=== PATIENT | male | born 1955 | race Two or more races ===

== ENCOUNTER 2017-03-18 11:31 | Emergency (ER) | payer OTHER, MEDICAID ==
[~2017-03-18] VITALS: Ht 162.6 cm; Wt 111.1 kg
[~2017-03-18 11:31] MED LIST: ADVAIR 250-501 EACH INH; ALBUTEROL SULF8.5 GM INH; ALBUTEROL2.5 MG/3 M HHN; AUGMENTIN 500-1 EACH PO; AZITHROMYCIN250 MG ORAL; AZITHROMYCIN250 MG PO; CRESTOR10 M1 PO; CYCLOBENZAPRINE10 MG ORAL; IBUPROFEN600 MG PO; IBUPROFEN800 MG ORAL; MECLIZINE HCL25 MG PO; MEDROL DOSEPAK4 MG PO; NORCO 5-325 TA1 EACH ORAL; NORCO1 E1 ORAL; PHENERGAN/CODE120 ML PO; PREDNISONE20 MG ORAL; PREDNISONE50 MG ORAL; PREDNISONE50 MG PO; PROMETHAZINE-C118 M1 ORAL; ROBITUSSIN DM5 ML ORAL; SYMBICORT 16010.2 G1 IH; TAMIFLU75 MG PO; TESSALON PERLE100 M2 ORAL; TRAVATAN 0.0042.5 ML OP; TRUSOPT10 ML BOTH EYES; VICODIN 5-5001 EACH PO; VICODIN ES 7.51 EACH PO; ZANTAC150 MG PO; ZITHROMAX250 MG ORAL; ZOFRAN ODT4 MG ORAL; dorzolamide
[2017-03-18] MEDS ORDERED: Albuterol ud Inhalation ONE (11:53)
[2017-03-18] MEDS ORDERED: Ipratropium 0.02% Inh Soln 2.5ml UD ONE ×2 (11:53)
[2017-03-18] MEDS ORDERED: Albuterol ud Inhalation HHN ONE ×2 (12:00)
[2017-03-18] MEDS ORDERED: Solu-MEDROL 125mg Inj IM ONE (12:00)
[2017-03-18] MEDS ORDERED: Ipratropium 0.02% Inh Soln 2.5ml UD HHN ONE (12:00)
[2017-03-18] MEDS ORDERED: Acetaminophen 500mg (ES) tab ORAL ONE (12:15)
[2017-03-18 12:39] LABS: BASOPHILS % (AUTO) 1.7 % (0.0-2.0); EOSINOPHILS % (AUTO) 0.8 % (0.0-3.0); LYMPHOCYTES % (AUTO) 7.5 % (20.0-45.0); MEAN CORPUSCULAR HEMOGLOBIN 25.5 PG (27.0-31.0); MEAN CORPUSCULAR HGB CONC 32.6 G/DL (32.0-36.0); MEAN CORPUSCULAR VOLUME 78 FL (80-99); MEAN PLATELET VOLUME 6.3 FL (6.5-10.1); MONOCYTES % (AUTO) 10.9 % (1.0-10.0); NEUTROPHILS % (AUTO) 79.2 % (45.0-75.0); PLATELET COUNT 339 K/UL (150-450); RED BLOOD COUNT 5.43 M/UL (4.70-6.10); RED CELL DISTRIBUTION WIDTH 13.1 % (11.6-14.8); WHITE BLOOD COUNT 11.2 K/UL (4.8-10.8)
[2017-03-18 12:50] LABS: ALANINE AMINOTRANSFERASE 34 U/L (3-41); ALBUMIN/GLOBULIN RATIO 1.4 (1.0-2.7); ANION GAP 17 (5-15); ASPARTATE AMINO TRANSFERASE 35 U/L (5-40); CARBON DIOXIDE 28 mEQ/L (20-30); CHLORIDE 94 mEQ/L (98-107); CREATININE 1.1 mg/dL (0.7-1.2); GLOMERULAR FILTRATION RATE > 60 mL/min (>60); HEMOLYSIS 6; POTASSIUM 3.6 mEQ/L (3.4-4.9); SODIUM 139 mEQ/L (135-145); TOTAL PROTEIN 7.5 g/dL (6.6-8.7)
--- NOTE | 2017-03-18 12:50 | Diagnostic Imaging Report ---
Indication: SOB Technique: One view of the chest Comparison: none Findings: Inspiration is suboptimal. No acute infiltrates, effusions, or congestion. Tortuous calcified aorta. Normal heart size. Upper mediastinum unremarkable. No significant change Impression: No acute process.
[2017-03-18 13:16] VITALS: BP 135/75
[2017-03-18] MEDS ORDERED: LEVAQUIN750 MG ORAL (13:33)
[2017-03-18] MEDS ORDERED: PROMETH-CODEIN 65 ML PO (13:33)
[2017-03-18] MEDS ORDERED: PREDNISONE20 MG ORAL (13:33)
[2017-03-18 14:19] VITALS: BP 107/65
[2017-03-18 14:20] VITALS: BP 107/65
--- NOTE | 2017-03-22 15:09 | Emergency Room Report ---
History of Present Illness General Chief Complaint: Asthma Source: Patient, Medical Record Present Illness HPI Patient has with complaints of cough and congestion Increased worsening of his asthma Denies any headache denies any chest pain He does feel short of breath however Denies any back or flank pain He does have increased sputum production with the cough Denies any leg swelling denies any recent travel denies any pleurisy did not feel that his medications at home were helping and presents to the ER Allergies: Coded Allergies: No Known Allergies (Verified Allergy, Unknown, 06/01/07) Patient History Past Medical History: see triage record Pertinent Family History: none Reviewed Nursing Documentation: PMH: Agreed, PSxH: Agreed Nursing Documentation-PMH Past Medical History: No History, Except For Hx Hypertension: No Hx Pacemaker: No Hx Asthma: Yes Hx COPD: Yes Hx Diabetes: No Hx Cancer: No Hx Gastrointestinal Problems: Yes Hx Dialysis: No 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 Hx Seizures: No Hx Spinal Cord Injury: Yes - cervical Hx Dizziness: Yes Review of Systems All Other Systems: negative except mentioned in HPI Physical Exam Vital Signs Date Time Temp Pulse Resp B/P Pulse Ox O2 Delivery O2 Flow Rate FiO2 03/18/17 11:36 98.4 117 18 136/75 94 Room Air 03/18/17 11:43 2.0 03/18/17 12:00 28 Sp02 EP Interpretation: reviewed, normal General Appearance: mild distress - appear short of breath Head: normocephalic, atraumatic Eyes: bilateral eye EOMI, bilateral eye PERRL ENT: hearing grossly normal, normal pharynx, TMs + canals normal, uvula midline Neck: full range of motion, supple, no meningismus, no bony tend Respiratory: no respiratory distress, no retraction, no accessory muscle use, wheezing - Diffusely and mildly tachypneic Cardiovascular #1: normal peripheral pulses, regular rate, rhythm, no edema, no gallop, no JVD, no murmur Gastrointestinal: normal bowel sounds, non tender, soft, no mass, no organomegaly, non-distended, no guarding, no hernia, no pulsatile mass, no rebound Genitourinary: no CVA tenderness Musculoskeletal: normal inspection Neurologic: oriented x3, responsive, dry can tender III-XII nml as tested, motor strength/ tone normal, sensory intact Psychiatric: mood/affect normal Skin: normal color, no rash, warm/dry, palpation normal Lymphatic: normal inspection, no adenopathy Medical Decision Making Diagnostic Impression: Primary Impression: Atypical pneumonia ER Course Patient is a fairly complex patient with multiple differential to consideration including but not limited to cardiac cardiopulmonary and vascular emergencies Patient's x-ray and blood work are appropriate Patient has done significantly better I did want to observe the patient longer and possible repeat intervention however patient reports that he is to clam pick[place] mom at the airport and would like to leave at this time he feels significantly better And will continue with close outpatient followup given the risk factors and the findings patient appears to have findings in line with atypical pneumonia CBC normal Chemistry normal Rhythm Strip Diag. Results EP Interpretation: yes Rate: 90 Rhythm: NSR, no PVC's, no ectopy Chest X-Ray Diagnostic Results EP Interpretation: Yes Findings: no consolidation, no effusion, no pneumothorax Number of Views: 1 Last Vital Signs Date Time Temp Pulse Resp B/P Pulse Ox O2 Delivery O2 Flow Rate FiO2 03/18/17 14:20 99.4 106 18 107/65 95 Room Air 2.0 28 Status: improved Disposition: HOME, SELF-CARE Condition: Improved Scripts Prednisone* (PREDNISONE*) 20 Mg Tablet 20 MG ORAL BID, #8 TAB Prov: NADINE DIALLO D.O. 03/18/17 Promethazine HCl/Codeine (Prometh-Codein 6.25-10 mg/5 ml) 5 Ml Syrup 5 ML PO QHS for 7 Days, ML Prov: NADINE DIALLO D.O. 03/18/17 Levofloxacin* (LEVAQUIN*) 750 Mg Tablet 750 MG ORAL DAILY for 7 Days, TAB Prov: NADINE DIALLO D.O. 03/18/17 Referrals: [facility],REFERRING (PCP) Patient Instructions: Asthma, Adult, Community-Acquired Pneumonia, Adult Additional Instructions: Patient is provided with the discharge instructions notified to follow up with primary doctor in the next 2-3 days otherwise return to the er with any worsening symptoms. Please note that this report is being documented using Coll[employer] technology. This can lead to erroneous entry secondary to incorrect interpretation by the dictating instrument. NADINE DIALLO D.O. Mar 22, 2017 15:09
== END 2017-03-18 14:22 | disposition home or self-care (01) ==
LOC: EMR 11:47
DX: J18.9 Pneumonia, unspecified organism (principal); J44.9 Chronic obstructive pulmonary disease, unspecified; H40.9 Unspecified glaucoma
CPT/HCPCS: 36415; 71010; 80053; 85025; 87040; 94640; 94664; 99283; J2930

== ENCOUNTER 2017-05-19 16:07 | Emergency (ER) | payer OTHER, MEDICAID ==
[~2017-05-19] VITALS: Ht 162.6 cm; Wt 117.9 kg
[~2017-05-19 16:07] MED LIST changes: +LEVAQUIN750 MG ORAL; +PROMETH-CODEIN 65 ML PO
[2017-05-19] MEDS ORDERED: PENICILLIN V P500 MG PO (17:04)
[2017-05-19] MEDS ORDERED: TYLENOL EXTRA500 MG ORAL (17:04)
[2017-05-19 17:15] VITALS: BP 146/97
[2017-05-19 17:16] VITALS: BP 150/100
--- NOTE | 2017-05-19 22:38 | Emergency Room Report ---
History of Present Illness General Chief Complaint: General Complaint Source: Patient Present Illness HPI The patient is a 62-year-old male presenting for injury of the tongue. He states that he bit the tongue one hour prior to arrival. He has not been able to control the bleeding. He denies any pain at this time. He states that he takes one baby aspirin daily and denies taking any blood thinners. He denies any other symptoms Allergies: Coded Allergies: No Known Allergies (Verified Allergy, Unknown, 06/01/07) Patient History Past Medical History: see triage record Pertinent Family History: none Reviewed Nursing Documentation: PMH: Agreed, PSxH: Agreed Nursing Documentation-PMH Hx Hypertension: No Hx Pacemaker: No Hx Asthma: Yes Hx COPD: Yes Hx Diabetes: No Hx Cancer: No Hx Gastrointestinal Problems: Yes Hx Dialysis: No 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 Hx Seizures: No Hx Spinal Cord Injury: Yes - cervical Hx Dizziness: Yes Review of Systems All Other Systems: negative except mentioned in HPI Physical Exam Vital Signs Date Time Temp Pulse Resp B/P Pulse Ox O2 Delivery O2 Flow Rate FiO2 05/19/17 16:12 98.2 95 18 150/100 95 Room Air Sp02 EP Interpretation: reviewed, normal General Appearance: no apparent distress, alert, GCS 15, non-toxic Head: normocephalic, atraumatic Eyes: bilateral eye PERRL, bilateral eye normal inspection ENT: hearing grossly normal, normal pharynx, normal voice, uvula midline, other - There is a less than 1 cm puncture of the ventral surface of the anterior tongue. Minimal active bleeding Neck: full range of motion, supple/symm/no masses Neurologic: alert, oriented x3, responsive, motor strength/tone normal, sensory intact, speech normal Psychiatric: judgement/insight normal, memory normal, mood/affect normal, no suicidal/homicidal ideation Skin: normal color, no rash, warm/dry, well hydrated Lymphatic: no adenopathy Medical Decision Making PA Attestation Dr. Milton is my supervising physician. Patient management was discussed with my supervising physician Diagnostic Impression: Primary Impression: Tongue laceration Qualified Codes: S01.512A - Laceration without foreign body of oral cavity, initial encounter ER Course The patient is a 62-year-old male presenting after biting his tongue Differential diagnosis considered: Laceration, infection, uncontrollable bleeding, anemia, among others Physical exam: No apparent distress There is a small puncture to the ventral surface of the anterior tongue with minimal bleeding. Pressure dressing is applied and the bleeding has stopped within 5 minutes. The patient is discharged home and will be given a prescription for penicillin as prophylaxis. ER precautions are given Last Vital Signs Date Time Temp Pulse Resp B/P Pulse Ox O2 Delivery O2 Flow Rate FiO2 05/19/17 17:16 98.2 18 150/100 95 Room Air 05/19/17 17:15 91 Status: improved Disposition: HOME, SELF-CARE Condition: Improved Scripts Penicillin V Potassium* (PENVK*) 500 Mg Tablet 500 MG PO Q6H, #28 TAB 0 Refills Prov: SERINA MORLEY P.A. 05/19/17 Acetaminophen* (TYLENOL EXTRA STRENGTH*) 500 Mg Tablet 500 MG ORAL Q8H Y for Prn Headache/Temp > 101, #30 TAB 0 Refills Prov: SERINA MORLEY P.A. 05/19/17 Patient Instructions: Tongue Laceration Additional Instructions: I discussed my findings with the patient. All questions and concerns have been answered. Treatment and medication compliance have been addressed. I advised the patient that they need to follow up with PMD in 3-5 days. Return to ED if symptoms worsen, new symptoms arise, or if needed for any reason. Patient verbalized understanding of discharge instructions. Please return to emergency Department if bleeding continues SERINA MORLEY May 19, 2017 22:38
== END 2017-05-19 17:17 | disposition home or self-care (01) ==
LOC: EMR 16:35
DX: S01.532A Puncture wound without foreign body of oral cavity, initial encounter (principal); X58.XXXA Exposure to other specified factors, initial encounter; Y92.89 Other specified places as the place of occurrence of the external cause; J44.9 Chronic obstructive pulmonary disease, unspecified
CPT/HCPCS: 99284

== ENCOUNTER 2017-09-25 15:10 | Emergency (ER) | payer OTHER, MEDICAID ==
[~2017-09-25] VITALS: Ht 162.6 cm; Wt 112.5 kg
[~2017-09-25 15:10] MED LIST changes: +PENICILLIN V P500 MG PO; +TYLENOL EXTRA500 MG ORAL
[2017-09-25] MEDS ORDERED: ZANTAC150 MG ORAL (15:22)
[2017-09-25] MEDS ORDERED: Albuterol ud Inhalation HHN ONE ×2 (15:30→16:30)
[2017-09-25] MEDS ORDERED: Ipratropium 0.02% Inh Soln 2.5ml UD HHN ONE ×2 (15:30→16:30)
[2017-09-25 15:48] VITALS: BP 144/128
[2017-09-25] MEDS ORDERED: PREDNISONE20 MG ORAL (17:27)
[2017-09-25] MEDS ORDERED: PROAIR HFA8.5 GM INH (17:27)
[2017-09-25] MEDS ORDERED: PROMETHAZINE-C118 M1 ORAL (17:27)
[2017-09-25 17:45] VITALS: BP 141/87
--- NOTE | 2017-09-25 20:17 | Emergency Room Report ---
History of Present Illness General Chief Complaint: Upper Respiratory Illness Source: Patient Present Illness [facility] The patient is a 62-year-old male with a stated history of asthma presenting for shortness of breath and cough for the past 4 days. He has tried albuterol at home which has not been helping. Pain is a 5/10 dull ache in the chest worse with cough. He denies any known sick contacts or recent travel. He denies fever or chills. He denies any other symptoms Allergies: Coded Allergies: No Known Allergies (Verified Allergy, Unknown, 06/01/07) Patient History Past Medical History: see triage record Pertinent Family History: none Reviewed Nursing Documentation: PMH: Agreed, PSxH: Agreed Nursing Documentation-PMH Hx Hypertension: No Hx Pacemaker: No Hx Asthma: Yes Hx COPD: Yes Hx Diabetes: No Hx Cancer: No Hx Gastrointestinal Problems: Yes Hx Dialysis: No 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 Hx Seizures: No Hx Spinal Cord Injury: Yes - cervical Hx Dizziness: Yes Review of Systems All Other Systems: negative except mentioned in HPI Physical Exam Vital Signs Date Time Temp Pulse Resp B/P (MAP) Pulse Ox O2 Delivery O2 Flow Rate FiO2 09/25/17 15:17 89 17 Room Air 09/25/17 15:17 97.7 144/128 94 Sp02 EP Interpretation: reviewed, normal General Appearance: no apparent distress, alert, GCS 15, non-toxic Head: normocephalic, atraumatic Eyes: bilateral eye normal inspection, bilateral eye PERRL ENT: hearing grossly normal, normal pharynx, no angioedema, normal voice Neck: full range of motion, supple/symm/no masses Respiratory: no rhonchi, no respiratory distress, no accessory muscle use, wheezing - bilat Cardiovascular #1: regular rate, rhythm, no edema Musculoskeletal: back normal, gait/station normal, normal range of motion, non- tender Neurologic: alert, oriented x3, responsive, motor strength/tone normal, sensory intact, speech normal Psychiatric: judgement/insight normal, memory normal, mood/affect normal, no suicidal/homicidal ideation Skin: normal color, no rash, warm/dry, well hydrated Medical Decision Making PA Attestation Dr. Morris is my supervising physician. Patient management was discussed with my supervising physician Diagnostic Impression: Primary Impression: Asthma exacerbation Qualified Codes: J45.21 - Mild intermittent asthma with (acute) exacerbation ER Course The patient is a 62-year-old male with a stated history of asthma presenting for shortness of breath and cough for the past 4 days Differential diagnoses considered but not limited to: Asthma exacerbation, bronchitis, pneumonia, anxiety Physical exam: Vitals within normal limits. No apparent distress HEENT exam is unremarkable Lungs: Decreased breath sounds bilaterally with wheezing. Chest is nontender. No respiratory distress. No accessory muscle use. The patient was given a breathing treatment and is feeling much better. Lungs sounds have improved Patient is discharged home with a prescription for albuterol, prednisone, and cough syrup and will followup with PMD. ER precautions are given Chest X-Ray Diagnostic Results Chest X-Ray Diagnostic Results : Chest X-Ray Ordered: Yes # of Views/Limited/Complete: 1 View Indication: Other - cough EP Interpretation: Yes CASSANDRA Xray: Interpretation reviewed, by supervising MD, and agrees with findings. Interpretation: no consolidation, no effusion, no pneumothorax Impression: No acute disease Electronically Signed by: Logan Godoy PA-C Last Vital Signs Date Time Temp Pulse Resp B/P (MAP) Pulse Ox O2 Delivery O2 Flow Rate FiO2 09/25/17 17:45 98 22 141/87 96 Room Air 09/25/17 15:48 97.7 Status: improved Disposition: HOME, SELF-CARE Condition: Improved Scripts Albuterol Sulfate* (PROAIR HFA*) 8.5 Gm Hfa.aer.ad 2 PUFFS INH Q6H, #8.5 GM 0 Refills Prov: TERZIANLOGAN P.A. 09/25/17 Prednisone* (PREDNISONE*) 20 Mg Tablet 40 MG ORAL DAILY, #10 TAB Prov: TERZIAN,LOGAN P.A. 09/25/17 Codeine/Promethazine Hcl* (PROMETHAZINE-CODEINE SYRUP*) 118 Ml Syrup 5 ML ORAL Q6H Y for For Cough, #118 ML 0 Refills Prov: TERZIANLOGAN P.A. 09/25/17 Referrals: NON PHYSICIAN (PCP) Patient Instructions: Asthma, Adult Additional Instructions: I discussed my findings with the patient. All questions and concerns have been answered. Treatment and medication compliance have been addressed. I advised the patient that they need to follow up with PMD in 3-5 days. Return to ED if pain remains or worsens, cough worsens or remains, you notice blood in your sputum, you notice wheezing, you experience a fever, or if needed for any reason. Patient verbalized understanding of discharge instructions. LOGAN GODOY Sep 25, 2017 20:17
--- NOTE | 2017-09-26 09:54 | Diagnostic Imaging Report ---
Indication: COUGH. Technique: XRAY CHEST 1 V. Comparison: 03/18/17 Findings: The heart is normal in size. The lungs are clear. No pleural fluid. There is atherosclerotic change of the aorta. The bones are unremarkable. Impression: Atherosclerotic change. Otherwise negative chest.
== END 2017-09-25 18:46 | disposition home or self-care (01) ==
LOC: EMR 15:54
DX: J45.901 Unspecified asthma with (acute) exacerbation (principal)
CPT/HCPCS: 71010; 94640; 94664; 99284

== ENCOUNTER 2017-10-23 15:25 | Emergency (ER) | payer OTHER, MEDICAID ==
[~2017-10-23] VITALS: Ht 162.6 cm; Wt 113.4 kg
[~2017-10-23 15:25] MED LIST changes: +PROAIR HFA8.5 GM INH; +ZANTAC150 MG ORAL
[2017-10-23] MEDS: Ipratropium 0.02% Inh Soln 2.5ml UD HHN SCH ×3 (16:53→17:16)
[2017-10-23] MEDS: Albuterol ud Inhalation HHN SCH ×3 (16:53→17:16)
[2017-10-23] MEDS ORDERED: ADVAIR 250-501 EACH INH (17:53)
[2017-10-23] MEDS ORDERED: PREDNISONE20 MG ORAL (17:53)
[2017-10-23] MEDS ORDERED: PROMETHAZINE-C118 M1 ORAL (17:53)
[2017-10-23 18:10] VITALS: BP 131/85
--- NOTE | 2017-10-24 13:02 | Emergency Room Report ---
History of Present Illness General Chief Complaint: Upper Respiratory Illness Source: Patient Present Illness [facility] The patient is a 62-year-old male with a stated history of asthma presenting for 5 days of productive cough and wheezing. He states that he frequently gets asthma exacerbations. He has albuterol at home which has not been helping. he denies any recent travel or known sick contacts. He denies any fever or chills. He denies any other symptoms including hemoptysis, shortness of breath , chest pain, myalgia Allergies: Coded Allergies: No Known Allergies (Verified Allergy, Unknown, 06/01/07) Patient History Past Medical History: see triage record Pertinent Family History: none Reviewed Nursing Documentation: PMH: Agreed, PSxH: Agreed Nursing Documentation-PMH Hx Hypertension: No Hx Pacemaker: No Hx Asthma: Yes Hx COPD: Yes Hx Diabetes: No Hx Cancer: No Hx Gastrointestinal Problems: Yes Hx Dialysis: No 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 Hx Seizures: No Hx Spinal Cord Injury: Yes - cervical Hx Dizziness: Yes Review of Systems All Other Systems: negative except mentioned in HPI Physical Exam Vital Signs Date Time Temp Pulse Resp B/P (MAP) Pulse Ox O2 Delivery O2 Flow Rate FiO2 10/23/17 15:34 88 21 Room Air 10/23/17 15:34 98.1 131/85 96 Sp02 EP Interpretation: reviewed, normal General Appearance: no apparent distress, alert, GCS 15, non-toxic Head: normocephalic, atraumatic Eyes: bilateral eye normal inspection, bilateral eye PERRL ENT: hearing grossly normal, normal pharynx, no angioedema, normal voice, uvula midline Neck: full range of motion, supple/symm/no masses Respiratory: chest non-tender, lungs clear, normal breath sounds, speaking full sentences, wheezing - bilat diffuse Cardiovascular #1: regular rate, rhythm, no edema Musculoskeletal: back normal, gait/station normal, normal range of motion, non- tender Neurologic: alert, oriented x3, responsive, motor strength/tone normal, sensory intact, speech normal Psychiatric: judgement/insight normal, memory normal, mood/affect normal, no suicidal/homicidal ideation Skin: normal color, no rash, warm/dry, well hydrated Lymphatic: no adenopathy Medical Decision Making PA Attestation Dr. Donnelly is my supervising physician. Patient management was discussed with my supervising physician Diagnostic Impression: Primary Impression: Asthma exacerbation Qualified Codes: J45.21 - Mild intermittent asthma with (acute) exacerbation ER Course The patient is a 62-year-old male with a stated history of asthma presenting for 5 days of productive cough and wheezing Differential diagnoses considered but not limited to: Asthma exacerbation, bronchitis, pneumonia, influenza, among others PE: Afebrile. NAD HEENT exam unremarkable. No tonsillar edema or exudate No cervical lymphadenopathy RRR Lungs have diffuse bilateral wheezing The patient is given a breathing treatment and feels better. Lung sounds have improved He'll be discharged home with prescription for cough medication, prednisone, and Advair. ER precautions are given Last Vital Signs Date Time Temp Pulse Resp B/P (MAP) Pulse Ox O2 Delivery O2 Flow Rate FiO2 10/23/17 18:10 98.3 100 19 131/85 96 Room Air Status: improved Disposition: HOME, SELF-CARE Condition: Improved Scripts Fluticasone/Salmeterol (Advair 250-50 Diskus) 1 Each Blst.w.dev 1 PUFF INH EVERY 12 HOURS, #1 EA Prov: SERINA MORLEY P.A. 10/23/17 Prednisone* (PREDNISONE*) 20 Mg Tablet 40 MG ORAL DAILY, #10 TAB Prov: SERINA MORLEY P.A. 10/23/17 Codeine/Promethazine Hcl* (PROMETHAZINE-CODEINE SYRUP*) 118 Ml Syrup 5 ML ORAL Q6H Y for For Cough, #118 ML 0 Refills Prov: SERINA MORLEY P.A. 10/23/17 Referrals: NON PHYSICIAN (PCP) Patient Instructions: Cough, Adult Additional Instructions: I discussed my findings with the patient. All questions and concerns have been answered. Treatment and medication compliance have been addressed. I advised the patient that they need to follow up with PMD in 3-5 days. Return to ED if pain remains or worsens, cough worsens or remains, you notice blood in your sputum, you notice wheezing, you experience a fever, or if needed for any reason. Patient verbalized understanding of discharge instructions. SERINA MORLEY Oct 24, 2017 13:01
== END 2017-10-23 18:10 | disposition home or self-care (01) ==
LOC: EMR 16:00
DX: J45.901 Unspecified asthma with (acute) exacerbation (principal); J44.9 Chronic obstructive pulmonary disease, unspecified
CPT/HCPCS: 94640; 94664; 99282

== ENCOUNTER 2017-11-15 10:48 | Emergency (ER) | payer OTHER, MEDICAID ==
[~2017-11-15] VITALS: Ht 162.6 cm; Wt 113.4 kg
[2017-11-15 11:05] VITALS: BP 160/78
[2017-11-15] MEDS ORDERED: IBUPROFEN600 MG ORAL (12:17)
[2017-11-15] MEDS ORDERED: ROBAXIN-750750 MG PO (12:17)
[2017-11-15 12:37] VITALS: BP 155/75
--- NOTE | 2017-11-15 13:42 | Emergency Room Report ---
History of Present Illness General Chief Complaint: Pain Source: Patient, Medical Record Present Illness HPI 62-year-old male, presenting with bilateral shoulder pain after fall yesterday. States that he slipped onto his left side. Since then complaining of bilateral shoulder pain. However has still been able to move it. Did not hit his head. No LOC. Patient able to get up on his own. No other complaints Allergies: Coded Allergies: No Known Allergies (Verified Allergy, Unknown, 06/01/07) Patient History Past Medical History: see triage record Past Surgical History: none Pertinent Family History: none Reviewed Nursing Documentation: PMH: Agreed, PSxH: Agreed Nursing Documentation-PMH Past Medical History: No History, Except For Hx Hypertension: No Hx Pacemaker: No Hx Asthma: Yes Hx COPD: Yes Hx Diabetes: No Hx Cancer: No Hx Gastrointestinal Problems: Yes Hx Dialysis: No 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 Hx Seizures: No Hx Spinal Cord Injury: Yes - cervical Hx Dizziness: Yes Review of Systems All Other Systems: negative except mentioned in HPI Physical Exam Vital Signs Date Time Temp Pulse Resp B/P (MAP) Pulse Ox O2 Delivery O2 Flow Rate FiO2 11/15/17 10:50 97.9 83 18 160/78 95 Room Air Sp02 EP Interpretation: reviewed, normal General Appearance: alert, GCS 15, non-toxic, mild distress Head: normocephalic, atraumatic Eyes: bilateral eye normal inspection, bilateral eye PERRL, bilateral eye EOMI ENT: normal ENT inspection, normal pharynx, normal voice, moist mucus membranes Neck: normal inspection, full range of motion, supple, no meningismus, no bony tend Respiratory: normal inspection, lungs clear, normal breath sounds, no respiratory distress, no retraction, no wheezing, speaking full sentences, chest symmetrical Cardiovascular #1: normal inspection, regular rate, rhythm, no edema, normal capillary refill Cardiovascular #2: 2+ radial (R), 2+ radial (L) Gastrointestinal: normal inspection, non tender, soft, non-distended, no guarding Genitourinary: no CVA tenderness Musculoskeletal: back normal, other - Bilateral muscular tenderness along the deltoid muscle bilaterally, full range of motion all extremities, no gross bony deformities Neurologic: normal inspection, alert, oriented x3, responsive, motor strength/ tone normal, sensory intact, normal gait, speech normal Psychiatric: normal inspection, judgement/insight normal, memory normal Skin: normal inspection, normal color, no rash, warm/dry, well hydrated, normal turgor Medical Decision Making Diagnostic Impression: Primary Impression: Musculoskeletal pain ER Course 62-year-old male with bilateral shoulder pain after fall DDX: Likely musculoskeletal pain vs. muscular strain Plan: Motrin ER course: Patient has remained nontoxic appearing and ambulatory in the ED. Pain improved w/ medications Disposition: Patient will be discharged to home with prescription of robaxin. Patient cautioned of the effects of robaxin including possible impairment of physical or mental abilities. Patient was instructed to refrain from operating machinery or driving. Patient is also cautioned on the GI effects of motrin and to take sparingly. Patient verbalized understanding. Strict precautions discussed with patient on when to emergently return to the ED which includes severe/worsening pain, weakness/numbness, urinary retention/ incontinence, fever or chills, which may indicate severe illness. Patient is to follow up with their PMD within 5 days. Patient agrees with plan. Please note that this Emergency Department Report was dictated using [employer]ic[employer] technology software, occasionally this can lead to erroneous entry secondary to interpretation by the dictation equipment. Last Vital Signs Date Time Temp Pulse Resp B/P (MAP) Pulse Ox O2 Delivery O2 Flow Rate FiO2 11/15/17 12:37 97.9 71 18 155/75 98 Room Air Disposition: HOME, SELF-CARE Condition: Improved Scripts Ibuprofen* (MOTRIN*) 600 Mg Tablet 600 MG ORAL Q8H Y for For Pain, #30 TAB 0 Refills Prov: Severo Hicks M.D. 11/15/17 Methocarbamol* (ROBAXIN-750*) 750 Mg Tablet 750 MG PO QID, #28 TAB 0 Refills Prov: Severo Hicks M.D. 11/15/17 Patient Instructions: Musculoskeletal Pain Severo Hicks M.D. Nov 15, 2017 13:42
== END 2017-11-15 13:51 | disposition home or self-care (01) ==
LOC: EMR 11:47
DX: M25.512 Pain in left shoulder (principal); M25.511 Pain in right shoulder; J44.9 Chronic obstructive pulmonary disease, unspecified; H40.9 Unspecified glaucoma
CPT/HCPCS: 99283

== ENCOUNTER 2018-08-07 12:03 | Emergency (ER) | payer OTHER, MEDICAID ==
[~2018-08-07] VITALS: Ht 162.6 cm; Wt 113.4 kg
[~2018-08-07 12:03] MED LIST changes: +IBUPROFEN600 MG ORAL; +ROBAXIN-750750 MG PO
[2018-08-07 12:19] VITALS: BP 146/80
[2018-08-07] MEDS ORDERED: Solu-MEDROL 125mg Inj IVP ONE (12:45)
[2018-08-07] MEDS ORDERED: Ipratropium 0.02% Inh Soln 2.5ml UD HHN ONE (12:45)
[2018-08-07] MEDS ORDERED: Acetaminophen 650 MG SUPP RECTAL ONE (12:45)
[2018-08-07] MEDS: Albuterol ud Inhalation HHN SCH ×3 (13:00→13:37)
[2018-08-07 13:19] LABS: BASOPHILS % (AUTO) 1.5 % (0.0-2.0); EOSINOPHILS % (AUTO) 6.9 % (0.0-3.0); HEMATOCRIT 44.6 % (42.0-52.0); HEMOGLOBIN 14.3 G/DL (14.2-18.0); LYMPHOCYTES % (AUTO) 16.2 % (20.0-45.0); MEAN CORPUSCULAR VOLUME 79 FL (80-99); MONOCYTES % (AUTO) 12.2 % (1.0-10.0); PLATELET COUNT 352 K/UL (150-450); RED BLOOD COUNT 5.67 M/UL (4.70-6.10); RED CELL DISTRIBUTION WIDTH 12.6 % (11.6-14.8); WHITE BLOOD COUNT 7.1 K/UL (4.8-10.8)
[2018-08-07 13:20] LABS: APPEARANCE,URINE SLIGHTLY CLOUDY; BILIRUBIN, URINE NEGATIVE (NEGATIVE); COLOR,URINE PALE YELLOW; GLUCOSE, URINE (UA) NEGATIVE (NEGATIVE); KETONES,URINE NEGATIVE (NEGATIVE); LEUKOCYTE ESTERASE ,URINE 1+ (NEGATIVE); NITRITE,URINE NEGATIVE (NEGATIVE); PH,URINE 8 (4.5-8.0); PROTEIN,URINE NEGATIVE (NEGATIVE); UROBILINOGEN,URINE NORMAL MG/DL (0.0-1.0)
[2018-08-07 13:30] LABS: ANION GAP 6 mmol/L (5-15); BLOOD UREA NITROGEN 12 mg/dL (7-18); CALCIUM 9.8 MG/DL (8.5-10.1); CARBON DIOXIDE 32 MMOL/L (21-32); CHLORIDE 104 MMOL/L (98-107); POTASSIUM 3.9 MMOL/L (3.5-5.1); SODIUM 141 MMOL/L (136-145)
[2018-08-07 13:43] LABS: ALANINE AMINOTRANSFERASE 25 U/L (12-78); ALBUMIN 3.7 G/DL (3.4-5.0); ALBUMIN/GLOBULIN RATIO 0.9 (1.0-2.7); ALKALINE PHOSPHATASE 73 U/L (46-116); ASPARTATE AMINO TRANSFERASE 22 U/L (15-37); BILIRUBIN,TOTAL 0.4 MG/DL (0.2-1.0); CREATINE KINASE 270 U/L (26-308)
--- NOTE | 2018-08-07 13:47 | Emergency Room Report ---
History of Present Illness General Chief Complaint: Dyspnea/Respdistress Source: Patient Present Illness HPI Patient presents with 3 days of cough and wheezing. He's had fevers and chills. He states that this been some mildly productive phlegm without any blood. Always wheezing, but worse now. Not worse attack. Years ago, people were considering intubation, but patient refused and improved. No phlegm. Feels that prednisone will help. Chest pressure rated 3/10, substernal and not radiating, more with breathing. No NVD, dysuria, joint pain, calf pain, rashes. Stopped smoking 31 years ago Allergies: Coded Allergies: No Known Allergies (Verified Allergy, Unknown, 06/01/07) Patient History Past Medical History: see triage record, asthma, COPD, other - glaucoma Past Surgical History: other - LE surgeries Social History: Denies: smoking - stopped 3 years ago, alcohol use, drug use Social History Narrative with son Reviewed Nursing Documentation: PMH: Agreed; PSxH: Agreed Nursing Documentation-PMH Past Medical History: No History, Except For Hx Hypertension: No Hx Pacemaker: No Hx Asthma: Yes Hx COPD: Yes Hx Diabetes: No Hx Cancer: No Hx Gastrointestinal Problems: Yes - GERD Hx Dialysis: No 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 Hx Seizures: No Hx Spinal Cord Injury: Yes - cervical Hx Dizziness: Yes Review of Systems All Other Systems: negative except mentioned in HPI Physical Exam Vital Signs Date Time Temp Pulse Resp B/P (MAP) Pulse Ox O2 Delivery O2 Flow Rate FiO2 08/07/18 12:09 98.2 81 22 147/83 94 Room Air 98.2 08/07/18 12:45 21 Sp02 EP Interpretation: reviewed, normal General Appearance: well appearing, no apparent distress, GCS 15 Head: normocephalic Eyes: bilateral eye normal inspection, bilateral eye PERRL ENT: moist mucus membranes Neck: supple Respiratory: no respiratory distress, no accessory muscle use, wheezing, expiration Cardiovascular #1: regular rate, rhythm, no edema Cardiovascular #2: 2+ radial (R) Gastrointestinal: normal inspection, normal bowel sounds, non tender, no mass, non-distended, overweight Musculoskeletal: back normal, gait/station normal, normal range of motion, no calf tenderness Neurologic: alert, oriented x3, grossly normal Psychiatric: mood/affect normal Skin: normal inspection, warm/dry Medical Decision Making Diagnostic Impression: Primary Impression: Asthma exacerbation Qualified Codes: J45.41 - Moderate persistent asthma with (acute) exacerbation ER Course Patient presents with wheezing. DDX; asthma exacerbation, pneumonia, CHF, AMI amongst others. Breathing treatments indicated as is solu-medrol. Hydration. Labs, CXR and EKG indicated. EKG without injury. CXR clear. Labs with eosinophilia, normal WBC. CMP normal. UA clear. Normal coags. Improved with treatment. Discussed treatment plan. Also significance of eosinophilia. Patient stable for outpatient observation and treatment. Laboratory Tests Test 08/07/18 12:54 08/07/18 13:04 White Blood Count 7.1 K/UL (4.8-10.8) Red Blood Count 5.67 M/UL (4.70-6.10) Hemoglobin 14.3 G/DL (14.2-18.0) Hematocrit 44.6 % (42.0-52.0) Mean Corpuscular Volume 79 FL (80-99) L Mean Corpuscular Hemoglobin 25.2 PG (27.0-31.0) L Mean Corpuscular Hemoglobin Concent 32.1 G/DL (32.0-36.0) Red Cell Distribution Width 12.6 % (11.6-14.8) Platelet Count 352 K/UL (150-450) Mean Platelet Volume 5.6 FL (6.5-10.1) L Neutrophils (%) (Auto) 63.0 % (45.0-75.0) Lymphocytes (%) (Auto) 16.2 % (20.0-45.0) L Monocytes (%) (Auto) 12.2 % (1.0-10.0) H Eosinophils (%) (Auto) 6.9 % (0.0-3.0) H Basophils (%) (Auto) 1.5 % (0.0-2.0) Prothrombin Time 10.7 SEC (9.30-11.50) Prothrombin Time INR 1.0 (0.9-1.1) PTT 28 SEC (23-33) Sodium Level 141 MMOL/L (136-145) Potassium Level 3.9 MMOL/L (3.5-5.1) Chloride Level 104 MMOL/L (98-107) Carbon Dioxide Level 32 MMOL/L (21-32) Anion Gap 6 mmol/L (5-15) Blood Urea Nitrogen 12 mg/dL (7-18) Creatinine 1.0 MG/DL (0.55-1.30) Estimate Glomerular Filtration Rate > 60 mL/min (>60) Glucose Level 109 MG/DL (74-106) H Calcium Level 9.8 MG/DL (8.5-10.1) Total Bilirubin 0.4 MG/DL (0.2-1.0) Aspartate Amino Transferase (AST) 22 U/L (15-37) Alanine Aminotransferase (ALT) 25 U/L (12-78) Alkaline Phosphatase 73 U/L (46-116) Total Creatine Kinase 270 U/L (26-308) Troponin I 0.003 ng/mL (0.000-0.056) Pro-B-Type Natriuretic Peptide 49 pg/mL (0-125) Total Protein 7.7 G/DL (6.4-8.2) Albumin 3.7 G/DL (3.4-5.0) Globulin 4.0 g/dL Albumin/Globulin Ratio 0.9 (1.0-2.7) L Urine Color Pale yellow Urine Appearance Slightly cloudy Urine pH 8 (4.5-8.0) Urine Specific Moore 1.010 (1.005-1.035) Urine Protein Negative (NEGATIVE) Urine Glucose (UA) Negative (NEGATIVE) Urine Ketones Negative (NEGATIVE) Urine Blood Negative (NEGATIVE) Urine Nitrite Negative (NEGATIVE) Urine Bilirubin Negative (NEGATIVE) Urine Urobilinogen Normal MG/DL (0.0-1.0) Urine Leukocyte Esterase 1+ (NEGATIVE) H Urine RBC 0 /HPF (0 - 0) Urine WBC 0-2 /HPF (0 - 0) Urine Squamous Epithelial Cells Occasional /LPF Urine Amorphous Sediment Few /LPF (NONE) H Urine Bacteria Occasional /HPF (NONE) EKG Diagnostic Results Rate: normal Rhythm: NSR ST Segments: no acute changes Rhythm Strip Diag. Results EP Interpretation: yes Rhythm: NSR, no PVC's, no ectopy Chest X-Ray Diagnostic Results Chest X-Ray Diagnostic Results : Chest X-Ray Ordered: Yes # of Views/Limited/Complete: 1 View Indication: Shortness of Breath EP Interpretation: Yes Interpretation: no consolidation, no effusion, no pneumothorax Impression: No acute disease Electronically Signed by: Electronically signed by Horace Donnelly MD Last Vital Signs Date Time Temp Pulse Resp B/P (MAP) Pulse Ox O2 Delivery O2 Flow Rate FiO2 08/07/18 14:30 98.2 85 21 135/79 100 Room Air 21 98.2 Status: improved Disposition: HOME, SELF-CARE Condition: Improved Scripts Beclomethasone Dipropionate 40MCG Oral Inh (QVAR 40*) 7.3 Gm Aer.w.adap 2 PUFFS INH TWICE A DAY, #1 GM 0 Refills Prov: Horace Donnelly M.D. 08/07/18 Dextromethorphan Hb/Doxylamine (ROBITUSSIN NIGHTTIME COUGH DM) 237 Ml Liquid 5 ML PO Q6HR, #100 ML Prov: Horace Donnelly M.D. 08/07/18 Prednisone* (PREDNISONE*) 20 Mg Tablet 40 MG ORAL DAILY, #10 TAB Prov: Horace Donnelly M.D. 08/07/18 Referrals: NON PHYSICIAN (PCP) Horace Donnelly M.D. Aug 07, 2018 13:47
[2018-08-07] MEDS ORDERED: ROBITUSSIN NIG237 ML PO (14:20)
[2018-08-07] MEDS ORDERED: QVAR7.3 GM INH (14:20)
[2018-08-07] MEDS ORDERED: PREDNISONE20 MG ORAL (14:20)
[2018-08-07 14:30] VITALS: BP_SYST 135; BP_SYST 146; BP_DIAS 79; BP_DIAS 80
--- NOTE | 2018-08-08 11:08 | Diagnostic Imaging Report ---
Indication: Cough Comparison: 09/25/2017 A single view chest radiograph was obtained. Findings: No definite infiltrate or pulmonary vascular congestion identified. Lung volumes are low. The heart is enlarged. The aorta is mildly enlarged consistent with atherosclerotic vascular disease. The bones are osteopenic. Impression: No acute disease
--- NOTE | 2018-08-09 07:58 | Cardiology Report ---
APPROVED REPORT EKG Measurement Heart [id number] Normal sinus rhythm Left axis deviation Abnormal ECG
== END 2018-08-07 14:30 | disposition home or self-care (01) ==
LOC: EMR 13:00
DX: J45.901 Unspecified asthma with (acute) exacerbation (principal); J44.9 Chronic obstructive pulmonary disease, unspecified; K21.9 Gastro-esophageal reflux disease without esophagitis
CPT/HCPCS: 36415; 71045; 80053; 81003; 82550; 83880; 84484; 85025; 85610; 85730; 93005; 94640; 96374; 99284; J2930

== ENCOUNTER 2019-07-02 13:18 | Emergency (ER) | payer OTHER, MEDICAID ==
[~2019-07-02] VITALS: Ht 162.6 cm; Wt 113.4 kg
[~2019-07-02 13:18] MED LIST changes: +QVAR7.3 GM INH; +ROBITUSSIN NIG237 ML PO
--- NOTE | 2019-07-02 13:56 | Emergency Room Report ---
History of Present Illness General Chief Complaint: Upper Respiratory Illness Source: Patient Present Illness HPI 64-year-old male history of smoking no longer smokes presents with cough, congestion x5 days, shortness of breath no aggravating or alleviating factors, he does endorse slight chest pain, no nausea no vomiting, no alleviating factors severity is moderate, constant, patient presents for evaluation and treatment Allergies: Coded Allergies: No Known Allergies (Verified Allergy, Unknown, 06/01/07) Patient History Past Medical History: see triage record Reviewed Nursing Documentation: PMH: Agreed; PSxH: Agreed Nursing Documentation-PMH Past Medical History: No History, Except For Hx Hypertension: No Hx Pacemaker: No Hx Asthma: Yes Hx COPD: Yes Hx Diabetes: No Hx Cancer: No Hx Gastrointestinal Problems: Yes - GERD Hx Dialysis: No 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 Hx Seizures: No Hx Spinal Cord Injury: Yes - cervical Hx Dizziness: Yes Review of Systems All Other Systems: negative except mentioned in HPI Physical Exam Vital Signs Date Time Temp Pulse Resp B/P (MAP) Pulse Ox O2 Delivery O2 Flow Rate FiO2 07/02/19 13:45 98.4 83 19 156/83 (107) 95 Room Air Sp02 EP Interpretation: reviewed, normal General Appearance: well appearing, no apparent distress, alert Head: normocephalic, atraumatic Eyes: bilateral eye PERRL, bilateral eye EOMI ENT: uvula midline, moist mucus membranes Neck: supple, thyroid normal, supple/symm/no masses Respiratory: no respiratory distress, no retraction, no accessory muscle use, wheezing - Moderate wheezing bilaterally Cardiovascular #1: normal peripheral pulses, regular rate, rhythm, no edema, no gallop, no murmur Gastrointestinal: non tender, soft, no guarding, no rebound Musculoskeletal: normal inspection Neurologic: alert, oriented x3 Psychiatric: mood/affect normal Skin: no rash, warm/dry Medical Decision Making Diagnostic Impression: Primary Impression: Upper respiratory infection Qualified Codes: J06.9 - Acute upper respiratory infection, unspecified Additional Impression: COPD with exacerbation ER Course 64-year-old male presents with shortness of breath, dyspnea consistent with COPD exacerbation, less suspicion for ACS, low suspicion for CHF exacerbation. Patient given Decadron, albuterol, patient significantly improved Reevaluation at 3:11 PM, patient feels better wheezing significantly improved Dispo home w/ return precautions Laboratory Tests Test 07/02/19 14:16 White Blood Count 8.0 K/UL (4.8-10.8) Red Blood Count 5.49 M/UL (4.70-6.10) Hemoglobin 14.4 G/DL (14.2-18.0) Hematocrit 43.8 % (42.0-52.0) Mean Corpuscular Volume 80 FL (80-99) Mean Corpuscular Hemoglobin 26.2 PG (27.0-31.0) L Mean Corpuscular Hemoglobin Concent 32.9 G/DL (32.0-36.0) Red Cell Distribution Width 13.2 % (11.6-14.8) Platelet Count 368 K/UL (150-450) Mean Platelet Volume 5.3 FL (6.5-10.1) L Neutrophils (%) (Auto) 57.5 % (45.0-75.0) Lymphocytes (%) (Auto) 20.0 % (20.0-45.0) Monocytes (%) (Auto) 15.2 % (1.0-10.0) H Eosinophils (%) (Auto) 5.9 % (0.0-3.0) H Basophils (%) (Auto) 1.5 % (0.0-2.0) Sodium Level 144 MMOL/L (136-145) Potassium Level 3.4 MMOL/L (3.5-5.1) L Chloride Level 106 MMOL/L (98-107) Carbon Dioxide Level 27 MMOL/L (21-32) Anion Gap 11 mmol/L (5-15) Blood Urea Nitrogen 14 mg/dL (7-18) Creatinine 1.2 MG/DL (0.55-1.30) Estimate Glomerular Filtration Rate > 60 mL/min (>60) Glucose Level 92 MG/DL (74-106) Calcium Level 9.3 MG/DL (8.5-10.1) Total Bilirubin 0.4 MG/DL (0.2-1.0) Aspartate Amino Transferase (AST) 18 U/L (15-37) Alanine Aminotransferase (ALT) 24 U/L (12-78) Alkaline Phosphatase 67 U/L (46-116) Total Creatine Kinase 99 U/L (26-308) Creatine Kinase MB 1.0 NG/ML (0.0-3.6) Creatine Kinase MB Relative Index 1.0 Troponin I 0.000 ng/mL (0.000-0.056) Pro-B-Type Natriuretic Peptide 140 pg/mL (0-125) H Total Protein 7.5 G/DL (6.4-8.2) Albumin 3.9 G/DL (3.4-5.0) Globulin 3.6 g/dL Albumin/Globulin Ratio 1.1 (1.0-2.7) EKG Diagnostic Results EKG Time: 13:59 EP Interpretation: NSR, rate 68, QTc 397, no acute ST elevations, left axis deviation Rhythm Strip Diag. Results Rhythm Strip Time: 14:10 Chest X-Ray Diagnostic Results Chest X-Ray Diagnostic Results : Chest X-Ray Ordered: Yes # of Views/Limited/Complete: 1 View Indication: Shortness of Breath EP Interpretation: Yes Interpretation: no consolidation, no effusion, no pneumothorax, no acute cardiopulmonary disease Impression: No acute disease Electronically Signed by: Kendall Laird MD Last Vital Signs Date Time Temp Pulse Resp B/P (MAP) Pulse Ox O2 Delivery O2 Flow Rate FiO2 07/02/19 13:45 98.4 83 19 156/83 (107) 95 Room Air Disposition: HOME, SELF-CARE Condition: Stable Scripts Prednisone* (PREDNISONE*) 50 Mg Tablet 50 MG ORAL DAILY, #4 TAB 0 Refills Prov: Kendall Laird MD 07/02/19 Albuterol Sulfate* (ALBUTEROL SULFATE MDI*) 8.5 Gm Hfa.aer.ad 2 PUFF INH Q4H PRN for cough/wheezing, #1 EA 0 Refills Prov: Kendall Laird MD 07/02/19 Cetirizine Hcl (ZYRTEC) 10 Mg Capsule 10 MG ORAL DAILY, #30 CAP 0 Refills Prov: Kendall Laird MD 07/02/19 Guaifenesin* (GUAIFENESIN) 100 Mg/5 Ml Liquid 15 ML ORAL Q8H PRN for For Cough, #120 ML 0 Refills Prov: Kendall Laird MD 07/02/19 Azithromycin* (ZITHROMAX*) 250 Mg Tablet 250 MG ORAL as directed, #6 TAB 0 Refills Take two tables once daily for 1 day, then one tablet once daily for 4 days. Prov: Kendall Laird MD 07/02/19 Referrals: [facility] Joanne Mcgrathtejas Miller Denilson. [facility] Patient Instructions: Chronic Obstructive Pulmonary Disease Exacerbation, Upper Respiratory Infection, Adult Additional Instructions: The patient was provided with discharge instructions, notified to follow-up with a primary care doctor and or specialist in the next 24-48 hours, and to return to the ED if they have worsening of their symptoms. Please note that this report is being documented using [employer] technology. This can lead to erroneous entry secondary to incorrect interpretation by the dictating instrument. Kendall Laird MD Jul 02, 2019 13:55
[2019-07-02] MEDS ORDERED: Dexamethasone 4mg/ml vial IVP ONE (14:00)
[2019-07-02] MEDS: Albuterol ud Inhalation HHN SCH (14:14)
[2019-07-02] MEDS: Ipratropium 0.02% Inh Soln 2.5ml UD HHN SCH (14:14)
[2019-07-02 14:38] LABS: BASOPHILS % (AUTO) 1.5 % (0.0-2.0); EOSINOPHILS % (AUTO) 5.9 % (0.0-3.0); HEMATOCRIT 43.8 % (42.0-52.0); HEMOGLOBIN 14.4 G/DL (14.2-18.0); MEAN CORPUSCULAR VOLUME 80 FL (80-99); MONOCYTES % (AUTO) 15.2 % (1.0-10.0); NEUTROPHILS % (AUTO) 57.5 % (45.0-75.0); PLATELET COUNT 368 K/UL (150-450); RED BLOOD COUNT 5.49 M/UL (4.70-6.10); RED CELL DISTRIBUTION WIDTH 13.2 % (11.6-14.8)
[2019-07-02 14:51] LABS: ANION GAP 11 mmol/L (5-15); BLOOD UREA NITROGEN 14 mg/dL (7-18); CALCIUM 9.3 MG/DL (8.5-10.1); CARBON DIOXIDE 27 MMOL/L (21-32); CHLORIDE 106 MMOL/L (98-107); CREATININE 1.2 MG/DL (0.55-1.30); POTASSIUM 3.4 MMOL/L (3.5-5.1); SODIUM 144 MMOL/L (136-145)
[2019-07-02 15:08] LABS: ALANINE AMINOTRANSFERASE 24 U/L (12-78); ALBUMIN 3.9 G/DL (3.4-5.0); ALBUMIN/GLOBULIN RATIO 1.1 (1.0-2.7); ALKALINE PHOSPHATASE 67 U/L (46-116); ASPARTATE AMINO TRANSFERASE 18 U/L (15-37); BILIRUBIN,TOTAL 0.4 MG/DL (0.2-1.0); CREATINE KINASE 99 U/L (26-308)
[2019-07-02] MEDS ORDERED: ZYRTEC10 M3 ORAL (15:11)
[2019-07-02] MEDS ORDERED: ALBUTEROL SULF8.5 GM INH (15:11)
[2019-07-02] MEDS ORDERED: GUAIFENESI100 MG/5 M ORAL (15:11)
[2019-07-02] MEDS ORDERED: ZITHROMAX250 MG ORAL (15:11)
[2019-07-02] MEDS ORDERED: PREDNISONE50 MG ORAL (15:12)
--- NOTE | 2019-07-02 15:20 | NUR ---
ER DISCHARGE NOTE:pt. received breathing treatment and IV meds with fluids Patient is cleared to be discharged per ERMD, pt is aox4, on room air, with stable vital signs. pt was given dc and prescription instructions, pt was able to verbalize understanding, pt id band and iv site removed without complications. pt is able to ambulate with steady gait. pt took all belongings.
[2019-07-02 15:42] VITALS: BP 156/83
--- NOTE | 2019-07-03 11:04 | Diagnostic Imaging Report ---
Indication: Dyspnea Comparison: 08/07/2018 A single view chest radiograph was obtained. Findings: Pulmonary vascular congestion is present. The heart is enlarged. Lung volumes are low. Resection of the distal right clavicle noted. IMPRESSION: CHF
--- NOTE | 2019-07-03 18:37 | Cardiology Report ---
APPROVED REPORT EKG Measurement Heart [id number] [id number] Normal sinus rhythm Normal ECG
== END 2019-07-02 15:42 | disposition home or self-care (01) ==
LOC: EMR 13:51
DX: J06.9 Acute upper respiratory infection, unspecified (principal); J44.1 Chronic obstructive pulmonary disease with (acute) exacerbation; K21.9 Gastro-esophageal reflux disease without esophagitis
CPT/HCPCS: 36415; 71045; 80053; 82550; 82553; 83880; 84484; 85025; 93005; 94640; 96365; 96375; 99284; J1100

== ENCOUNTER 2019-09-18 15:34 | Emergency (ER) | payer MEDICAID, OTHER ==
[~2019-09-18] VITALS: Ht 162.6 cm; Wt 113.4 kg
[~2019-09-18 15:34] MED LIST changes: +GUAIFENESI100 MG/5 M ORAL; +ZYRTEC10 M3 ORAL
--- NOTE | 2019-09-18 15:45 | NUR ---
ED Nurse Note: Patient walked into ED from home c/o chest tightness and pain on his chest area generally for 3 weeks. patient is alert awake x4 ambulatory, breathing unlabored and even, speaking in full sentences. patient on a hospital gown, placed on a cardaic monitor.
--- NOTE | 2019-09-18 15:55 | Emergency Room Report ---
History of Present Illness General Chief Complaint: Pain Source: Patient Present Illness HPI Patient presents with complaints of left-sided chest pain that is fairly intermittent patient describes it Over the past several weeks when turning to his left side feeling a sharp pinching type pain in the left upper chest Denies any shortness of breath or pleurisy denies any vomiting or diarrhea reports that earlier he had come out of the shower and had another episode Therefore presents to the ER Denies any recent travel denies any focal weakness patient has comorbidity of hypercholesterolemia And hypertension Allergies: Coded Allergies: No Known Allergies (Verified Allergy, Unknown, 06/01/07) Patient History Past Medical History: see triage record Reviewed Nursing Documentation: PMH: Agreed; PSxH: Agreed Nursing Documentation-PMH Past Medical History: No History, Except For Hx Hypertension: No Hx Pacemaker: No Hx Asthma: Yes Hx COPD: Yes Hx Diabetes: No Hx Cancer: No Hx Gastrointestinal Problems: Yes - GERD Hx Dialysis: No 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 Hx Seizures: No Hx Spinal Cord Injury: Yes - cervical Hx Dizziness: Yes Review of Systems All Other Systems: negative except mentioned in HPI Physical Exam Vital Signs Date Time Temp Pulse Resp B/P (MAP) Pulse Ox O2 Delivery O2 Flow Rate FiO2 09/18/19 15:36 98.2 70 15 152/94 (113) 96 Room Air Sp02 EP Interpretation: reviewed, normal General Appearance: well appearing, no apparent distress Head: normocephalic, atraumatic Eyes: bilateral eye PERRL, bilateral eye EOMI ENT: hearing grossly normal, normal pharynx, TMs + canals normal, uvula midline Neck: full range of motion, supple, no meningismus, no bony tend Respiratory: lungs clear, normal breath sounds, no rhonchi, no respiratory distress, no retraction, no accessory muscle use Cardiovascular #1: normal peripheral pulses, regular rate, rhythm, no edema, no gallop, no JVD, no murmur Gastrointestinal: normal bowel sounds, non tender, soft, no mass, no organomegaly, non-distended, no guarding, no hernia, no pulsatile mass, no rebound Genitourinary: no CVA tenderness Musculoskeletal: normal inspection Neurologic: motor strength/tone normal, template cutter III-XII nml as tested, oriented x3 , sensory intact, responsive Psychiatric: mood/affect normal Skin: no rash Lymphatic: normal inspection, no adenopathy Medical Decision Making Diagnostic Impression: Primary Impression: Chest pain ER Course Patient is a fairly complex patient with multiple differential to consideration including but not limited to cardiac cardiopulmonary and vascular emergencies Patient does have some fairly atypical type complaints regarding the chest pain however given the comorbidities and the patient's age fairly extensive work-up was initiated EKG does not show any acute process troponin also negative patient resting comfortably and at this time is stable for close outpatient follow-up Labs Test 09/18/19 15:55 White Blood Count 7.1 K/UL (4.8-10.8) Red Blood Count 5.49 M/UL (4.70-6.10) Hemoglobin 14.6 G/DL (14.2-18.0) Hematocrit 43.2 % (42.0-52.0) Mean Corpuscular Volume 79 FL (80-99) Mean Corpuscular Hemoglobin 26.6 PG (27.0-31.0) Mean Corpuscular Hemoglobin Concent 33.8 G/DL (32.0-36.0) Red Cell Distribution Width 12.7 % (11.6-14.8) Platelet Count 403 K/UL (150-450) Mean Platelet Volume 5.4 FL (6.5-10.1) Neutrophils (%) (Auto) 57.6 % (45.0-75.0) Lymphocytes (%) (Auto) 23.8 % (20.0-45.0) Monocytes (%) (Auto) 12.3 % (1.0-10.0) Eosinophils (%) (Auto) 4.6 % (0.0-3.0) Basophils (%) (Auto) 1.6 % (0.0-2.0) Sodium Level 142 MMOL/L (136-145) Potassium Level 3.6 MMOL/L (3.5-5.1) Chloride Level 105 MMOL/L (98-107) Carbon Dioxide Level 29 MMOL/L (21-32) Anion Gap 8 mmol/L (5-15) Blood Urea Nitrogen 13 mg/dL (7-18) Creatinine 1.1 MG/DL (0.55-1.30) Estimat Glomerular Filtration Rate > 60 mL/min (>60) Glucose Level 92 MG/DL (74-106) Calcium Level 9.8 MG/DL (8.5-10.1) Total Bilirubin 0.6 MG/DL (0.2-1.0) Aspartate Amino Transf (AST/SGOT) 25 U/L (15-37) Alanine Aminotransferase (ALT/SGPT) 34 U/L (12-78) Alkaline Phosphatase 53 U/L (46-116) Troponin I 0.006 ng/mL (0.000-0.056) Total Protein 7.8 G/DL (6.4-8.2) Albumin 4.2 G/DL (3.4-5.0) Globulin 3.6 g/dL Albumin/Globulin Ratio 1.2 (1.0-2.7) EKG Diagnostic Results Rate: normal Rhythm: NSR ST Segments: no acute changes Rhythm Strip Diag. Results EP Interpretation: yes Rate: 66 Rhythm: NSR, no PVC's, no ectopy Chest X-Ray Diagnostic Results Chest X-Ray Diagnostic Results : Chest X-Ray Ordered: Yes # of Views/Limited/Complete: 1 View Indication: Chest Pain EP Interpretation: Yes Interpretation: no consolidation, no effusion, no pneumothorax Impression: No acute disease Electronically Signed by: Irina Morris DO Last Vital Signs Date Time Temp Pulse Resp B/P (MAP) Pulse Ox O2 Delivery O2 Flow Rate FiO2 09/18/19 15:36 98.2 70 15 152/94 (113) 96 Room Air Status: improved Disposition: HOME, SELF-CARE Condition: Improved Additional Instructions: Patient is provided with the discharge instructions notified to follow up with primary doctor in the next 2-3 days otherwise return to the er with any worsening symptoms. Please note that this report is being documented using [employer] technology. This can lead to erroneous entry secondary to incorrect interpretation by the dictating instrument. Irina Morris DO Sep 18, 2019 15:55
--- NOTE | 2019-09-18 16:05 | NUR ---
ED Nurse Note: blood sent to lab.
[2019-09-18 16:16] LABS: BASOPHILS % (AUTO) 1.6 % (0.0-2.0); EOSINOPHILS % (AUTO) 4.6 % (0.0-3.0); HEMATOCRIT 43.2 % (42.0-52.0); HEMOGLOBIN 14.6 G/DL (14.2-18.0); LYMPHOCYTES % (AUTO) 23.8 % (20.0-45.0); MEAN CORPUSCULAR VOLUME 79 FL (80-99); MONOCYTES % (AUTO) 12.3 % (1.0-10.0); NEUTROPHILS % (AUTO) 57.6 % (45.0-75.0); PLATELET COUNT 403 K/UL (150-450); RED BLOOD COUNT 5.49 M/UL (4.70-6.10); RED CELL DISTRIBUTION WIDTH 12.7 % (11.6-14.8); WHITE BLOOD COUNT 7.1 K/UL (4.8-10.8)
--- NOTE | 2019-09-18 16:19 | Diagnostic Imaging Report ---
Indication: Chest pain Comparison: 07/02/2019 A single view chest radiograph was obtained. Findings: No definite infiltrate or pulmonary vascular congestion identified. The heart is enlarged. The aorta is mildly enlarged consistent with atherosclerotic vascular disease. The bones are osteopenic. Impression: No acute disease
[2019-09-18 16:29] LABS: ANION GAP 8 mmol/L (5-15); BLOOD UREA NITROGEN 13 mg/dL (7-18); CALCIUM 9.8 MG/DL (8.5-10.1); CARBON DIOXIDE 29 MMOL/L (21-32); CHLORIDE 105 MMOL/L (98-107); CREATININE 1.1 MG/DL (0.55-1.30); POTASSIUM 3.6 MMOL/L (3.5-5.1); SODIUM 142 MMOL/L (136-145)
[2019-09-18 16:34] LABS: ALANINE AMINOTRANSFERASE 34 U/L (12-78); ALBUMIN 4.2 G/DL (3.4-5.0); ALBUMIN/GLOBULIN RATIO 1.2 (1.0-2.7); ALKALINE PHOSPHATASE 53 U/L (46-116); ASPARTATE AMINO TRANSFERASE 25 U/L (15-37); BILIRUBIN,TOTAL 0.6 MG/DL (0.2-1.0)
[2019-09-18 16:46] VITALS: BP 125/78
[2019-09-18 16:55] VITALS: BP 135/76
--- NOTE | 2019-09-18 16:57 | NUR ---
ER DISCHARGE NOTE: Patient is cleared to be discharged per ERMD, pt is aox4, on room air, with stable vital signs. pt was given dc and prescription instructions, pt was able to verbalize understanding, pt id band removed. pt is able to ambulate with steady gait. pt took all belongings. Pt verbalized understanding that make appt with PCP in 2-3 days and symptoms to watch for.
--- NOTE | 2019-09-19 13:06 | Cardiology Report ---
APPROVED REPORT EKG Measurement Heart [id number] [place] [id number] Normal sinus rhythm Nonspecific ST abnormality Abnormal ECG
== END 2019-09-18 16:55 | disposition home or self-care (01) ==
LOC: EMR 16:12
DX: R07.9 Chest pain, unspecified (principal); J44.9 Chronic obstructive pulmonary disease, unspecified; K21.9 Gastro-esophageal reflux disease without esophagitis; E78.00 Pure hypercholesterolemia, unspecified; I10 Essential (primary) hypertension
CPT/HCPCS: 36415; 71045; 80053; 84484; 85025; 93005; 99284